=== PATIENT | female | born 1985 | race Caucasian/White ===

== ENCOUNTER 2019-06-06 10:00 | Day surgery (SDC) | payer SELFPAY ==
[2019-06-06 10:17] LABS: Absolute Lymphocytes (CBC) 1.3 K/uL (0.7-4.9); Basophils % 0.5 % (0-1.3); Hematocrit 34.8 % (36.0-45.0); Lymphocytes % 22.1 % (15.3-44.8); MPV 7.9 fL (7.6-11.3); RBC Red Blood Cell Count 4.08 M/uL (3.86-4.86)
[2019-06-06 10:21] LABS: Potassium 4.5 mmol/L (3.5-5.1)
[2019-06-06] MEDS ORDERED: HYDROCODONE/APAP 10/325 TAB ONE (10:22)
[2019-06-06 11:02] VITALS: O2SAT 100
--- NOTE | 2019-06-06 11:55 | RAD REPORT ---
EXAM DESCRIPTION: RAD - Chest Pa And Lat (2 Views) - 06/06/2019 10:39 am CLINICAL HISTORY: PRE OP FOR SURGERY Chest pain. COMPARISON: No comparisons FINDINGS: The lungs are clear. The heart is normal in size. No displaced fractures. IMPRESSION: No acute or concerning finding suspected.
[2019-06-06] MEDS ORDERED: CIPROFLOXACIN 400mg IV 400 MG/200 ML BAG IV ONE (13:17)
[2019-06-06] MEDS ORDERED: Ringers Lactate 1,000 ML IV ONE (13:17)
[2019-06-06] MEDS ORDERED: propofoL 200 MG/20 ML VIAL IV ONE (15:03)
[2019-06-06] MEDS ORDERED: LIDOCAINE 2% MPF 5 ML VIAL ONE (15:03)
[2019-06-06] MEDS ORDERED: MIDAZOLAM HCL 2 MG/2 ML INJ ONE (15:04)
[2019-06-06] MEDS ORDERED: FENTANYL CITR 100 MCG/2 ML ONE (15:04)
[2019-06-06] MEDS ORDERED: ROCURONIUM 50 MG/5 ML VIAL IV ONE (15:04)
[2019-06-06] MEDS ORDERED: METHYLENE BLUE 0.5% 10 ML AMP ONE (15:40)
[2019-06-06] MEDS ORDERED: dexAMETHasone 10 MG/ML VIAL ONE (15:55)
[2019-06-06] MEDS ORDERED: KETOROLAC 30 MG/ML INJ ONE (15:56)
[2019-06-06] MEDS ORDERED: ONDANSETRON 4 MG/2 ML VIAL ONE (15:56)
[2019-06-06] MEDS ORDERED: NEOSTIGMINE 1 MG/ML -5 ML ONE (16:13)
[2019-06-06] MEDS ORDERED: GLYCOPYRROLATE 0.2 MG/ML SYR ONE ×2 (16:13→16:48)
--- NOTE | 2019-06-06 16:31 | P.BOP ---
Preoperative diagnosis: infected tender pilonidal cyst Postoperative diagnosis: same Primary procedure: WIde excision of infected pilonidal cyst with abscess drainage 7 x 6 x 3 cm Estimated blood loss: <10cc Specimen: pus and cyst Findings: see dictation Anesthesia: General Complications: None Drain(s): Other (NS packing) Transferred to: Recovery Room Condition: Good
[2019-06-06 17:08] VITALS: TEMP 97.8
[2019-06-06 17:27] VITALS: BP 103/87
--- NOTE | 2019-06-07 02:05 | DS ---
Date of Discharge: 06/06/2019 Diagnosis: Infected pilonidal cyst with abscess. Procedure: Wide excision of infected pilonidal cyst with abscess drainage. Disposition: Home. Activity: As tolerated, no heavy lifting. Discharge Instructions: Follow up in my office in 1 week. Call for appointment [phone]. The patie nt is already taking Bactrim DS p.o. b.i.d. that the primary doctor gave and we are going to continue with the same. We are going to follow up on the cultures. Patient claims allergy to hydrocodone, so we are going to give her Ultracet q.4 hours p.r.n. pain and a prescription also for saline. She has a friend, who is in healthcare, who is going to be doing her dressing changes. Follow up in my offi ce in 1 week. YISSEL/WILBER Voice ID: [id number] Report ID: [id number]
--- NOTE | 2019-06-07 08:49 | OP ---
Date of Procedure: 06/06/2019 Surgeon: Kole Bernstein MD Preoperative Diagnosis: Infected very tender pilonidal cyst with cellulitis and abscess. Postoperative Diagnosis: Infected very tender pilonidal cyst with cellulitis and abscess. Procedures: Wide excision of infected pilonidal cyst with abscess drainage 7 x 6 x 3 cm. Findings: Pus pocket present in the pilonidal cyst goes all the way down to the coccyx bone. Anesthesia: General plus local. Packing: Normal saline packing wet-to-dry. Indications: This is the case of a female who comes to us with very tender piloidal cyst, _ sent home on antibiotics, getting even worse, redness covering now both areas of the but tocks including sacral region. It is very tender, she wants that done under anesthesia. She cannot take anymore so she was booked emergently for wide excision of pilonidal cyst with abscess, drainage with benefits, alternatives, and risks including, but not limited to infection, bleeding, damage to a djacent structures, anesthesia complication, recurrence, VA, and even . She also understands th is may not relieve any symptoms, she might need more than one surgical intervention. She understood. Also, she will require wound care over the next several months. She signed a consent. Description Of Procedure: Patient was brought to the operating room, placed in supine position, anes thesia was given without complication. Patient was placed in prone position with proper protection. A time-out was called. Sacral area was prepped and draped in usual sterile fashion. We used an Ang iocath with methylene blue and placed that to one of the orifice cyst. Then after that, w e proceeded then to make a wide excision of the area, removed the pus and removed the with the wall of the cyst too. This goes all the way down to bone. the pus was excised, cult ures were done. The area was profusely irrigated. Hemostasis obtained and the area was packed with wet-to-dry dressing. Patient tolerated the procedure well. Patient was sent to the recovery room in stable condition. YISSEL/WILBER Voice ID: [id number] Report ID: [id number]
== END 2019-06-06 17:38 | disposition home or self-care (01) ==
LOC: OR 10:00
PROVIDERS: ATTEND Surgery
PROC: 0JB90ZZ Excision of Buttock Subcutaneous Tissue and Fascia, Open Approach (ICD-10-PCS; principal; 2019-06-06 10:15)
DX: L05.01 Pilonidal cyst with abscess (principal); L03.317 Cellulitis of buttock; F17.210 Nicotine dependence, cigarettes, uncomplicated; Z88.0 Allergy status to penicillin
CPT/HCPCS: 87070; 85025; 80048; 36415; 87205; 84703; 88304; 87075; 71046; 11771; J2704; J2250; J3010; J1100; J2710; J7120; J2405; J0744